=== PATIENT | female | born 1980 | race Two or more races ===

== ENCOUNTER 2016-11-04 09:51 | Emergency (ER) | payer OTHER ==
[2016-11-04 10:00] VITALS: BP 143/99; PULSE 79; TEMP 97; BMI 18.3
--- NOTE | 2016-11-04 10:47 | PDOC ---
History of Present Illness - General History Source: Patient Exam Limitations: No Limitations <Prashant Carvajal - Last Filed: 11/04/16 11:16> - History of Present Illness Initial Comments: 11/04/16 12:19 The patient is a 36 year old female with no past medical hx who presents to the ED complaining of dizziness and nausea since this morning. The patient states she had three wisdom teeth removed on Tuesday (3 days ago). She was given Amoxicillin, Acetaminophen with Codeine, and Ibuprofen. The patient reports she has been taking her Amoxicillin and Ibuprofen every day as prescribed. Today she notes her pain increased so she took two of the Acetaminophen with Codeine and shortly after started to feel nauseous and dizzy. She denies ever taking this medication in the past. She notes she did not eat anything today and only had milk to drink. Last night she had plantains for dinner. The patient denies vomiting, abdominal pain. The patient denies headaches, chest pain, SOB, fever, chills. <Audrey Bird - Last Filed: 11/04/16 12:20> - General Chief Complaint: Lightheaded Stated Complaint: DIZZINES Time Seen by Provider: 11/04/16 10:11 Past History - Psycho/Social/Smoking Cessation Hx Anxiety: No Suicidal Ideation: No Smoking History: Never smoked Have you smoked in the past 12 months: No Information on smoking cessation initiated: No Hx Alcohol Use: No Drug/Substance Use Hx: No Substance Use Type: None <Prashant Carvajal - Last Filed: 11/04/16 11:16> <Audrey Bird - Last Filed: 11/04/16 12:20> - Past Medical History Allergies/Adverse Reactions: Allergies Allergy/AdvReac Type Severity Reaction Status Date / Time No Known Allergies Allergy Verified 11/04/16 09:57 Home Medications: Ambulatory Orders NK [No Known Home Medication] 11/04/16 Review of Systems - Review of Systems Able to Perform ROS?: Yes Comments:: 11/04/16 12:20 CONSTITUTIONAL: No reported: Fever, Chills, Diaphoresis, Generalized Weakness, Malaise, Loss of Appetite HEENT: No reported: Rhinorrhea, Nasal Congestion, Throat Pain, Throat Swelling, Difficulty Swallowing, Mouth Swelling, Ear Pain, Eye Pain, Visual Changes CARDIOVASCULAR: No reported: Chest Pain, Syncope, Palpitations, Irregular Heart Rate, Lightheadedness, Peripheral Edema RESPIRATORY: No reported: Cough, Shortness of Breath, SOB with Exertion, Orthopnea, Wheezing , Stridor, Hemoptysis GASTROINTESTINAL: +Nausea. No reported: Abdominal pain, Abdominal Distension, Vomiting, Diarrhea, Constipation, Melena, Hematochezia GENITOURINARY: No reported: Dysuria, Frequency, Urgency, Hesitancy, Flank Pain, Genital Pain MUSCULOSKELETAL: No reported: Myalgia, Arthralgia, Joint Swelling, Back pain, Neck Pain SKIN: No reported: Rash, Itching, Pallor HEMEATOLOGIC/IMMUNOLOGIC: No reported: Easy Bleeding, Easy Bruising, Lymphadenopathy, Frequent infections ENDOCRINE: No reported: Unexplained Weight Gain, Unexplained Weight Loss, Heat Intolerance , Cold Intolerance NEUROLOGIC: +Dizziness. No reported: Headache, Focal Weakness, Paresthesias, Lightheadedness , Unsteady Gait, Seizure, Mental Status Changes, Incontinence PSYCHIATRIC: No reported: Anxiety, Depression <Audrey Bird - Last Filed: 11/04/16 12:20> *Physical Exam - Vital Signs Last Vital Signs Temp Pulse Resp BP Pulse Ox 97 F L 79 18 143/99 98 11/04/16 09:57 11/04/16 09:57 11/04/16 09:57 11/04/16 09:57 11/04/16 09:57 <Prashant Carvajal - Last Filed: 11/04/16 11:16> - Vital Signs Last Vital Signs Temp Pulse Resp BP Pulse Ox 97 F L 79 18 143/99 98 11/04/16 09:57 11/04/16 09:57 11/04/16 09:57 11/04/16 09:57 11/04/16 09:57 - Physical Exam Comments: 11/04/16 12:20 GENERAL: The patient is awake, alert, and fully oriented, Nontoxic - in no acute distress. HEAD: Normocephalic, atraumatic. EYES: extraocular movements intact, sclera anicteric, conjunctiva clear. ENT: Normal voice, Moist mucous membranes, no focal swelling/edema masses noted in phayrynx/mandible NECK: Normal range of motion, supple LUNGS: Breath sounds equal, clear to auscultation bilaterally. No wheezes, no rhonchi, no rales. HEART: Regular rate and rhythm, normal S1 and S2 without murmur, rub or gallop. ABDOMEN: Soft, nontender, normoactive bowel sounds. No guarding, no rebound. . No CVA tenderness EXTREMITIES: Normal range of motion, no edema. No clubbing or cyanosis. No cords, erythema, or tenderness. NEUROLOGICAL: No facial assymetry, Normal speech, moving all 4 extermities spontaneously and symemtrically PSYCH: Normal mood, normal affect. SKIN: Warm, Dry, normal turgor, <Audrey Bird - Last Filed: 11/04/16 12:20> Medical Decision Making - Medical Decision Making 11/04/16 10:58 36y F no pmhx presents with feeling lightheaded/dizzy, alittle nauseus, and itchy since around 7:30 this AM - the pt states she had recent wisdom tooth extraction. She has been taking amoxicillin TID since tuesday, this morning, she took 2 vicodin and 1 amoxicillin, then started to feel dizziy.nauseus/itchy. there was no associated cp, sob, vomiting, abd pain, back pain, fever/chills, increased swelling, rashes. doubt allergic reaction likely due to opiate effect, especially as she took 2 on a basically empty stomach (only been drinking juice and soup) will dc the pt with pmd fu return precautions were discussed A portion of this note was documented by scribe services under my direction. I have reviewed the details of the note, within reason, and agree with the documentation with the following case summary and management plan written by me I discussed the physical exam findings, ancillary test results and final diagnoses with the patient. I answered all of the patient's questions. The patient was satisfied with the care received and felt comfortable with the discharge plan and treatment plan. The patient will call their primary care physician within 24 hours to arrange follow-up and will return to the Emergency Department with any new, persistent or worsening symptoms. <Prashant Carvajal - Last Filed: 11/04/16 11:16> *DC/Admit/Observation/Transfer - Discharge Dispostion Admit: No <Prashant Carvajal - Last Filed: 11/04/16 11:16> - Attestations Scribe Attestion: 11/04/16 12:19 Documentation prepared by Audrey Neroda, acting as medical office secretary for Prashant Carvajal MD, /DO. <Audrey iBrd - Last Filed: 11/04/16 12:20> Diagnosis at time of Disposition: Adverse drug effect - Discharge Dispostion Disposition: HOME Condition at time of disposition: Improved - Referrals Referrals: [facility] [Provider Group] - Patient Instructions Printed Discharge Instructions: DI for Adverse Drug Reaction -- Other Additional Instructions: Return to the emergency department immediately with ANY new, persistent or worsening symptoms. Only take 1 of your pain medication as some patients can be sensitive to this class of medications. You MUST call and follow up with your doctor tomorrow for further evaluation of your symptoms. Results were discussed with you. Please make sure your doctor reviews the results of your emergency evaluation. Print Language: ICELANDIC
== END 2016-11-04 11:20 | disposition home or self-care (01) ==
LOC: JER 09:51
DX: R42 Dizziness and giddiness (principal); T40.2X5A Adverse effect of other opioids, initial encounter; Y92.038 Other place in apartment as the place of occurrence of the external cause; K08.199 Complete loss of teeth due to other specified cause, unspecified class
CPT/HCPCS: 99281-25

== ENCOUNTER 2018-12-22 15:37 | Emergency (ER) | payer OTHER | END 2018-12-22 18:17 | disposition home or self-care (01) | LOC: JER 15:37 ==

== ENCOUNTER 2019-02-19 09:55 | Emergency (ER) | payer OTHER ==
[2019-02-19 10:08] VITALS: BP 116/73; PULSE 109; TEMP 99.3; BMI 20.2
[2019-02-19 11:30] LABS: EPI CELLS 19.5 /HPF (0-5/HPF); HYALINE CASTS 13 /lpf (0-8); PH,URINE 6.5 (5.0-8.0); URINE APPEARANCE CLOUDY; URINE BACTERIA 319.4 /hpf (NEGATIVE); URINE BILIRUBIN NEGATIVE (NEGATIVE); URINE COLOR DK YELLOW; URINE GLUCOSE (UA) NEGATIVE (NEGATIVE); URINE KETONE 1+ (NEGATIVE); URINE LEUK ESTERASE 2+ (NEGATIVE); URINE NITRITE NEGATIVE (NEGATIVE); URINE PROTEIN NEGATIVE (NEGATIVE); URINE RBC 2 /hpf (0-4); URINE WBC 5 /hpf (0-5)
[2019-02-19 11:35] LABS: BASO % 0.2 % (0-2.0); EOS % 0.6 % (0-4.5); HEMATOCRIT 30.8 % (32.4-45.2); HEMOGLOBIN 10.5 GM/dL (10.7-15.3); LYMPH % 17.4 % (8-40); MCH 28.6 pg (25.7-33.7); MCHC 34.2 g/dl (32.0-36.0); MEAN CELL VOLUME 83.6 fl (80-96); MEAN PLT VOLUME 7.4 fl (7.5-11.1); NEUT % 76.8 % (42.8-82.8); PLATELET COUNT 296 K/MM3 (134-434); RBC 3.68 M/mm3 (3.60-5.2); RDW 14.8 % (11.6-15.6); WHITE BLOOD COUNT 10.2 K/mm3 (4.0-10.0)
--- NOTE | 2019-02-19 11:45 | PDOC ---
History of Present Illness - General Chief Complaint: Pain Stated Complaint: 17 WKS/ ABD. PAIN Time Seen by Provider: 02/19/19 10:19 History Source: Patient Exam Limitations: No Limitations - History of Present Illness Travel History: No Initial Comments: 02/19/19 11:41 38-year-old female currently 17 weeks presents to ED with complaints of lower abdominal cramping, chills, and mild fatigue. Patient states has had an ultrasound this which showed a normal IUP. Patient has no other complaints at this time including urinary complaints, nausea, vomiting, diarrhea recent travel recent illness. Timing/Duration: reports: constant Quality: reports: moderate, cramping Abdominal Pain Onset Location: reports: suprapubic Pain Radiation: reports: no radiation Activities at Onset: reports: none Aggravating Factors: improves with: None Alleviating Factors: improves with: None Past History - Travel Traveled outside of the country in the last 30 days: No Close contact w/someone who was outside of country & ill: No - Past Medical History Allergies/Adverse Reactions: Allergies Allergy/AdvReac Type Severity Reaction Status Date / Time No Known Allergies Allergy Verified 02/19/19 10:06 Home Medications: Ambulatory Orders Cephalexin [Keflex] 500 mg PO BID #14 capsule 02/19/19 Pnv No.95/Ferrous Fum/Folic AC [ Caplet] 1 each PO DAILY 02/19/19 COPD: No - Reproductive History (#): 3 Para: 1 Cervical CA: No Dysfunctional Uterine Bleeding: No Ectopic : No Endometrial CA: No Polycystic Ovaries: No Therapeutic (s) & number: Yes Tubal Ligation: No - Suicide/Smoking/Psychosocial Hx Smoking History: Never smoked Have you smoked in the past 12 months: No Hx Alcohol Use: No Drug/Substance Use Hx: No Substance Use Type: None Patient Lives Alone: No Lives with/in: spouse/SO Review of Systems - Review of Systems Able to Perform ROS?: Yes Constitutional: Yes: Chills HEENTM: No: Symptoms Reported Respiratory: No: Symptoms reported Cardiac (ROS): No: Symptoms Reported ABD/GI: Yes: Abdominal cramping : No: Symptoms Reported Musculoskeletal: No: Symptoms Reported Integumentary: No: Symptoms Reported Neurological: No: Symptoms reported Hematologic/Lymphatic: No: Symptoms Reported *Physical Exam - Vital Signs Last Vital Signs Temp Pulse Resp BP Pulse Ox 99.3 F 109 H 18 116/73 98 02/19/19 10:06 02/19/19 10:06 02/19/19 10:06 02/19/19 10:06 02/19/19 10:06 - Physical Exam General Appearance: Yes: Nourished, Appropriately Dressed. No: Apparent Distress HEENT: negative: Pale Conjunctivae Neck: positive: Normal Thyroid Respiratory/Chest: positive: Lungs Clear, Normal Breath Sounds. negative: Respiratory Distress, Accessory Muscle Use Cardiovascular: positive: Regular Rhythm, Tachycardia. negative: Murmur Gastrointestinal/Abdominal: positive: Soft, Tenderness (right suprapubic right lower quadrant) Musculoskeletal: negative: CVA Tenderness Extremity: positive: Normal Inspection Integumentary: positive: Normal Color, Warm, Moist Neurologic: positive: Motor Strength 5/5 ( ambulatory) ED Treatment Course - LABORATORY CBC & Chemistry Diagram: 02/19/19 11:00 02/19/19 11:00 - ADDITIONAL ORDERS Additional order review: Laboratory Results 02/19/19 10:58 Urine Color Dk yellow Urine Appearance Cloudy Urine pH 6.5 D Ur Specific [place] 1.024 Urine Protein Negative Urine Glucose (UA) Negative Urine Ketones 1+ H Urine Blood Negative Urine Nitrite Negative Urine Bilirubin Negative Urine Urobilinogen 1.0 Ur Leukocyte Esterase 2+ H Urine WBC (Auto) 5 Urine RBC (Auto) 2 Urine Casts (Auto) 13 U Epithel Cells (Auto) 19.5 Urine Bacteria (Auto) 319.4 02/19/19 11:00 RBC 3.68 MCV 83.6 MCHC 34.2 RDW 14.8 MPV 7.4 L Neutrophils % 76.8 Lymphocytes % 17.4 D Monocytes % 5.0 Eosinophils % 0.6 Basophils % 0.2 - RADIOLOGY Radiology Studies Ordered: Category Date Time Status ABDOMEN US -LIMITED [US] Stat Ultrasound 02/19/19 10:20 Ordered FOLLOW-UP US [US] Stat Ultrasound 02/19/19 10:20 Ordered Medical Decision Making - Medical Decision Making 02/19/19 1107 CC: abd cramping for the past 2 days now associated with chills and mild fatigue. Patient has no other complaints and is currently 17 weeks Exam: Slightly tachycardic at 106 and low-grade temperature 99.3 along with right lower quadrant and right suprapubic tenderness Plan: Urine urine culture CBC, comp, lactic acid, lipase and ultrasound ordered 02/19/19 13:46 Laboratory Tests 02/19/19 02/19/19 02/19/19 10:58 11:00 11:00 WBC 10.2 H Hgb 10.5 L Hct 30.8 L Sodium 138 Potassium 3.7 Chloride 104 Carbon Dioxide 26 Anion Gap 8 BUN 6.0 L Creatinine 0.4 L Lactic Acid Total Bilirubin 0.2 AST 29 ALT 43 Albumin 2.9 L Lipase Urine Ketones 1+ H Ur Leukocyte Esterase 2+ H Urine WBC (Auto) 5 Urine RBC (Auto) 2 02/19/19 02/19/19 11:00 11:00 WBC Hgb Hct Sodium Potassium Chloride Carbon Dioxide Anion Gap BUN Creatinine Lactic Acid 1.2 Total Bilirubin AST ALT Albumin Lipase 115 Urine Ketones Ur Leukocyte Esterase Urine WBC (Auto) Urine RBC (Auto) Ultrasound shows single live gestation 17 weeks 6 days with a heart rate of 140 beats intermittent. The fetus is in a vertex position at this time. Patient will be treated for urinary tract infection based on complaints of lower abdominal pain along with chills. Patient's UA suggestive of UTI. Urine culture sent. *DC/Admit/Observation/Transfer Diagnosis at time of Disposition: UTI (urinary tract infection), Abdominal pain during - Discharge Dispostion Disposition: HOME Condition at time of disposition: Improved - Prescriptions Prescriptions: Cephalexin [Keflex] 500 mg PO BID #14 capsule - Referrals Referrals: Carol Jack MD [Primary Care Provider] - - Patient Instructions Printed Discharge Instructions: DI for Urinary Tract Infection (UTI), DI for Abdominal Pain -- Early Additional Instructions: Tylenol for discomfort. Please take antibiotics until completed. Also drink plenty of fluids. - Post Discharge Activity
[2019-02-19 11:56] LABS: ALBUMIN 2.9 g/dl (3.4-5.0); BILIRUBIN,TOTAL 0.2 mg/dL (0.2-1); CALCIUM 8.6 mg/dL (8.5-10.1); CREATININE 0.4 mg/dL (0.55-1.3); POTASSIUM 3.7 mmol/L (3.5-5.1); TOT PROT 6.6 g/dl (6.4-8.2)
== END 2019-02-19 14:05 | disposition home or self-care (01) ==
LOC: JER 09:55
DX: O26.892 Other specified pregnancy related conditions, second trimester (principal); Z3A.17 17 weeks gestation of pregnancy; N39.0 Urinary tract infection, site not specified; R10.9 Unspecified abdominal pain
CPT/HCPCS: 36415; 76705-TC; 76816-TC; 80053; 81003; 83605; 83690; 85025; 87086; 99282-25

== ENCOUNTER 2019-07-23 09:25 | Inpatient (IN) | payer OTHER ==
[2019-07-23] MEDS ORDERED: ELECTROLYTE-148 SOLN 500 ML IV ONE (10:28)
[2019-07-23] MEDS ORDERED: ELECTROLYTE-148 SOLN 1,000 ML IV SCH (10:30)
[2019-07-23] MEDS ORDERED: CITRIC ACID/SODIUM CITRATE 30 ML UNIT-DOSE CUP PO ONE (10:30)
--- NOTE | 2019-07-23 10:33 | HP ---
Past Medical History - Admission Chief Complaint: Scheduled PTLCS History of Present Illness: 39yo @ 39wks by LMP/sono here for scheduled C/S secondary new onset HSV outbreak Pt noted several vesicular lesions on her buttocks, cultured and positive for HSV-2. Took only 2 days of her Valtrex and self discontinued secondary to GI upset. No VB/LOF. +ctx. +FM. 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's, CVA, Dementia, Migraine, Multiple Sclerosis, Peripheral Neuropathy, Parkinson's, Seizure, Syncope, TIA, Vertigo, Other ...: 2 ...Para: 1 ...Term: 1 ...: 0 ...EDC by Dates: 07/29/19 Infectious Disease: Yes: Other (HSV-2 confirmed on swab) Rheumatology: No: Fibromyalgia, Gout, Lupus, Rheumatoid Arthritis, Sarcoidosis, Vasculitis, Other ENT: No: Allergic Rhinitis, Sinusitis, Other Endocrine: No: Concordia's Disease, Teresa's Disease, Diabetes Insipidus, Diabetes Mellitus, Hyperparathyroidism, Hyperthyroidism, Hypothyroidism, Osteopenia, SIADH, Other Dermatology: No: Basal Cell, Cellulitis, Eczema, Melanoma, Psoriasis, Squamous Cell, Other - Past Surgical History Past Surgical History: Yes: None Hx Myomectomy: No Hx Transabdominal Cerclage: No - Smoking History Smoking history: Never smoked Have you smoked in the past 12 months: No - Alcohol/Substance Use Hx Alcohol Use: No - Social History Usual Living Arrangement: Yes: Alone Do you think of yourself as: Straight/Heterosexual ADL: Independent History of Recent Travel: No Home Medications - Allergies Allergies/Adverse Reactions: Allergies Allergy/AdvReac Type Severity Reaction Status Date / Time No Known Allergies Allergy Verified 07/23/19 10:26 - Home Medications Home Medications: Ambulatory Orders Pnv No.95/Ferrous Fum/Folic AC [ Caplet] 1 each PO DAILY 02/19/19 Review of Systems - Review of Systems Constitutional: denies: No Symptoms, Chills, Diaphoresis, Fever, Lethargy, Loss of Appetite, Malaise, Night Sweats, Unintentional Wgt. Loss, Weakness, Other Cardiovascular: denies: No Symptoms, Chest Pain, Edema, Palpitations, Shortness of Breath, Other Respiratory: denies: No Symptoms, Cough, Exercise Intolerance, Hemoptysis, Orthopnea, PND, Snoring, SOB, SOB on Exertion, Wheezing, Other Gastrointestinal: denies: No Symptoms, Abdominal Pain, Bloating, Constipation, Diarrhea, Dysphagia, Indigestion, Melena, Nausea, Rectal Bleeding, Vomiting, Vomiting Blood, Other Genitourinary: denies: No Symptoms, Burning, Discharge, Dysuria, Flank Pain, Frequency, Hematuria, Incontinence, Lesions, Menses, Pain, Testicular Mass, Testicular Pain, Testicular Swelling, Urgency, Vaginal Bleeding, Other Physical Exam - Maternity Constitutional: Yes: Well Nourished, No Distress, Calm - Abdominal Exam/OB Number of Fetuses: Single Presentation: Vertex Contractions: Yes Regularity: Regular Intensity: Mild Monitor Mode: External Category: I Accelerations: Non-Uniform Decelerations: None - Vaginal Exam/OB Vaginal Bleediing: No Speculum Exam: No Presentation: Vertex/Position - Physical Exam Edema: No Problem List - Problems (1) HSV (herpes simplex virus) infection Code(s): B00.9 - HERPESVIRAL INFECTION, UNSPECIFIED (2) 39 weeks gestation of Code(s): Z3A.39 - 39 WEEKS GESTATION OF Assessment/Plan 39yo @ 39+wks here for primary C/S given recent HSV outbreak Admit to L&D NPO, IVFs Ancef SCDs Mae TEDs Risk of procedure reviewed including bleeding, infection and injury to bladder/ bowel/adnexa/vessels/nerves reviewed. All questions answered. Consent signed. Zohreh Venegas MD
[2019-07-23] MEDS ORDERED: ONDANSETRON 4 MG/2 ML VIAL IVPUSH PRN (10:39)
[2019-07-23 10:45] VITALS: BMI 25.0
[2019-07-23] MEDS ORDERED: OXYTOCIN 20 UNITS in 0.9% NS 20 UNIT/1,000 ML INFUS.BAG IV ONE (11:00)
[2019-07-23] MEDS ORDERED: morphine SULFATE/PF 0.5 MG/ML (2cc Syringe - QUVA) ONE (11:03)
[2019-07-23] MEDS ORDERED: ceFAZolin SODIUM 1 GM VIAL ONE (11:15)
[2019-07-23] MEDS ORDERED: OXYTOCIN 10 UNITS/ML VIAL ONE ×2 (11:23→11:34)
[2019-07-23] MEDS ORDERED: METHYLERGONOVINE MALEATE 0.2 MG/1 ML AMP IM PRN (12:02)
[2019-07-23] MEDS ORDERED: IBUPROFEN 800 MG/8 ML IJ IVPB PRN (12:02)
[2019-07-23] MEDS ORDERED: oxyCODONE HCL 5 MG TABLET PO PRN (12:02)
--- NOTE | 2019-07-23 12:02 | OP ---
Operative Note - Note: Operative Date: 07/23/19 Operation: Primary Low Transverse Findings: VFI, REBECCA position, no nuchal, light meconium. Weight 7lbs 14oz. Apgars 9/9. Normal tubes and ovaries. Post-Operative Diagnosis: Same as Pre-op Surgeon: Fela Venegas Brokerage Branch Manager: Duong Osorio Anesthesia: Spinal Estimated Blood Loss (mls): 600 Drains, Volume Out (mls): 400 (clear urine) Operative Report Dictated: Yes
[2019-07-23] MEDS ORDERED: OXYTOCIN 20 UNITS in 0.9% NS 20 UNIT/1,000 ML INFUS.BAG IV SCH (12:15)
--- NOTE | 2019-07-23 13:26 | HP ---
DATE OF ADMISSION: 07/23/2019 PREOPERATIVE DIAGNOSIS: A 39-week , primary herpes simplex virus II outbreak. POSTOPERATIVE DIAGNOSIS: A 39-week , primary herpes simplex virus II outbreak. PROCEDURE: Primary low transverse section. ANESTHESIA: Spinal. SURGEON: Fela Venegas MD CRATE ICER: PETR Jiménez INTRAVENOUS FLUIDS: Per anesthesia record. ESTIMATED BLOOD LOSS: 600. URINE OUTPUT: 400 mL of clear urine at the end of the procedure. FINDINGS: Viable female , REBECCA position. One nuchal delivered through. Late meconium. Weight 7 pounds 14 ounces. Apgars 9, 9. Normal tubes and ovaries bilaterally. COMPLICATIONS: None. CONDITION: Stable to recovery room. NATURE OF THE PROCEDURE: After the appropriate consents were signed, patient was taken to the operating room. Spinal anesthesia was administered. Sterile Mae catheter had been inserted prior to entry into the operating room. The abdomen was prepped and draped in a normal sterile fashion. Time-out was performed confirming correct patient and procedure. Anesthesia was confirmed prior to incision. A Pfannenstiel incision was made through the skin, carried through to the underlying layers until the fascia was nicked in the midline. The fascia was then extended laterally with the Syed scissors. The inferior aspect of the fascia was grasped with a Eliseo clamp, tented upwards, and the rectus muscle was dissected off bluntly and with the Syed scissors. Attention was then paid to the superior aspect, which was taken down in a similar fashion. The rectus muscles were bluntly in the midline. The peritoneum was entered bluntly. Bladder blade was inserted. Bladder reflection was made after the serosa was nicked in the midline with the Metzenbaums and extended laterally with the Metzenbaum scissors. Bladder flap was created digitally. The uterus was incised in a low transverse fashion. Meconium-stained amniotic fluid was noted. The 's head was delivered without difficulty after the remaining shoulders and body. There was 1 body nuchal that was delivered through. The cord was clamped and cut. The was handed off to the awaiting pediatric staff. The placenta was then removed manually. The uterus was cleared of all clot and debris. The uterus was exteriorized. The hysterotomy was closed in a single, vertical, imbricating layer with a 1-0 Vicryl with a midline area that had to be reinforced for hemostasis with a 1-0 Vicryl, and hemostasis was achieved. The adnexa were inspected and noted to be normal. The uterus was then returned to the abdominal cavity. The hysterotomy was noted to be normal. Gutter was cleared of all clot and debris. Muscle reapproximated with a 2-0 chromic. Fascia was closed with a 0 Vicryl. Subcutaneous tissue was closed with a 2-0 chromic. The skin was closed with a 3-0 Biosyn. All sponge, lap, needle counts were correct x3. The patient did receive Ancef at the start of the procedure. She was taken from the operating room to recovery area in stable condition. MD KEVIN ROY/[id number]
[2019-07-23] MEDS: ACETAMINOPHEN 325 MG TABLET (FP) PO PRN (21:24)
[2019-07-24] MEDS: FERROUS SO4 325 MG TABLET (FP) PO SCH ×3 (00:37→22:20)
--- NOTE | 2019-07-24 07:59 | PN ---
Post Progress Note - Subjective Subjective: Patient is out of bed, Mae just removed, desiring to see Post Day: 1 Type of Delivery: Primary C/S Vital Signs: Vital Signs Temperature 98.1 F 07/24/19 06:00 Pulse Rate 87 07/24/19 06:00 Respiratory Rate 20 07/24/19 07:00 Blood Pressure 99/50 L 07/24/19 06:00 O2 Sat by Pulse Oximetry (%) 100 07/23/19 13:05 Breast Exam: Yes: Other Uterus: Yes: Fundus Firm Incision: Yes: Dressing dry and intact, Sutures intact Abdomen/GI: Yes: Abdomen soft Lochia, amount: Moderate Extremities: Yes: Calves non-tender Perineum: Yes: Intact Activity: Ambulating Assessment/Plan POD # 1 in stable condition S/P PLTC due to suspected HSV outbreak -Continue PP/post-op care -Encourage ambulation -NICU to speak to mother
[2019-07-24] MEDS: ACETAMINOPHEN 325 MG TABLET (FP) PO PRN ×3 (08:07→22:24)
[2019-07-24] MEDS: IBUPROFEN 600 MG TABLET (FP) PO PRN ×3 (08:08→22:23)
[2019-07-24] MEDS: SIMETHICONE 80 MG TAB.CHEW (FP) PO PRN ×3 (08:10→22:23)
[2019-07-24 09:20] LABS: BASO % 0.3 % (0-2.0); EOS % 0.1 % (0-4.5); HEMOGLOBIN 12.4 GM/dL (10.7-15.3); LYMPH % 8.4 % (8-40); MCH 28.5 pg (25.7-33.7); MCHC 33.6 g/dl (32.0-36.0); MEAN CELL VOLUME 84.8 fl (80-96); MEAN PLT VOLUME 7.7 fl (7.5-11.1); MONO % 4.2 % (3.8-10.2); PLATELET COUNT 221 K/MM3 (134-434); RBC 4.36 M/mm3 (3.60-5.2)
[2019-07-24] MEDS: PRENATAL VITAMINS W/ FOLIC ACID TABLET (FP) PO SCH (09:47)
[2019-07-24] MEDS ORDERED: BISACODYL 10 MG SUPP.RECT RC PRN (12:02)
[2019-07-25] MEDS: SIMETHICONE 80 MG TAB.CHEW (FP) PO PRN ×3 (08:07→20:52)
[2019-07-25] MEDS: IBUPROFEN 600 MG TABLET (FP) PO PRN ×2 (08:07→15:28)
[2019-07-25] MEDS: ACETAMINOPHEN 325 MG TABLET (FP) PO PRN ×2 (08:08→15:28)
--- NOTE | 2019-07-25 08:11 | PN ---
Post Progress Note - Subjective Subjective: c/o pain scale varrying 5-7 voiding urine BM done c/o rash on her back & itching Post Day: 2 Type of Delivery: Primary C/S Vital Signs: Vital Signs Temperature 98.2 F 07/24/19 22:00 Pulse Rate 85 07/24/19 22:00 Respiratory Rate 18 07/24/19 22:00 Blood Pressure 119/72 07/24/19 22:00 O2 Sat by Pulse Oximetry (%) 100 07/23/19 13:05 Breast Exam: Yes: Soft, Other (pumping breast milk ). No: Engorged Uterus: Yes: Fundus Firm, Fundus below umbilicus Incision: Yes: Sutures intact. No: Redness, Oozing Abdomen/GI: Yes: Abdomen soft (bs active ), Tender, Passing flatus, Tolerating PO (diet). No: Abdominal Distention Lochia: Yes: Rubra Lochia, amount: Moderate Extremities: Yes: Calves non-tender Perineum: Yes: Intact Activity: Ambulating - Labs Labs: CBC WBC 17.0 K/mm3 (4.0-10.0) H 07/24/19 08:50 RBC 4.36 M/mm3 (3.60-5.2) 07/24/19 08:50 Hgb 12.4 GM/dL (10.7-15.3) 07/24/19 08:50 Hct 37.0 % (32.4-45.2) 07/24/19 08:50 MCV 84.8 fl (80-96) 07/24/19 08:50 MCH 28.5 pg (25.7-33.7) 07/24/19 08:50 MCHC 33.6 g/dl (32.0-36.0) 07/24/19 08:50 RDW 16.0 % (11.6-15.6) H 07/24/19 08:50 Plt Count 221 K/MM3 (134-434) 07/24/19 08:50 MPV 7.7 fl (7.5-11.1) 07/24/19 08:50 Absolute Neuts (auto) 14.8 K/mm3 (1.5-8.0) H 07/24/19 08:50 Neutrophils % 87.0 % (42.8-82.8) H 07/24/19 08:50 Lymphocytes % 8.4 % (8-40) D 07/24/19 08:50 Monocytes % 4.2 % (3.8-10.2) 07/24/19 08:50 Eosinophils % 0.1 % (0-4.5) 07/24/19 08:50 Basophils % 0.3 % (0-2.0) 07/24/19 08:50 Nucleated RBC % 0 % (0-0) 07/24/19 08:50 Other Findings, Remarks: large patches of urticarial erythematous rash all over the back , unable to find cuse of allergy Problem List - Problems (1) Status post section routine follow-up Code(s): Z39.2 - ENCOUNTER FOR ROUTINE FOLLOW-UP; Z98.891 - HISTORY OF UTERINE SCAR FROM PREVIOUS SURGERY Assessment/Plan stable plan ct po care po benadryl
[2019-07-25] MEDS: diphenhydrAMINE HCL 25 MG CAPSULE (FP) PO PRN ×2 (08:56→20:52)
[2019-07-25] MEDS: FERROUS SO4 325 MG TABLET (FP) PO SCH ×2 (10:39→22:30)
[2019-07-25] MEDS: PRENATAL VITAMINS W/ FOLIC ACID TABLET (FP) PO SCH (10:39)
[2019-07-26] MEDS: diphenhydrAMINE HCL 25 MG CAPSULE (FP) PO PRN ×2 (02:14→21:31)
[2019-07-26] MEDS: ACETAMINOPHEN 325 MG TABLET (FP) PO PRN ×3 (02:15→21:23)
[2019-07-26] MEDS: SIMETHICONE 80 MG TAB.CHEW (FP) PO PRN ×2 (02:15→15:40)
[2019-07-26] MEDS: IBUPROFEN 600 MG TABLET (FP) PO PRN ×3 (02:15→21:24)
--- NOTE | 2019-07-26 06:29 | PN ---
Post Progress Note - Subjective Subjective: Pain controlled. Ambulating. No fevers/chills. Baby in NICU Post Day: 3 Type of Delivery: Primary C/S Vital Signs: Vital Signs Temperature 98.1 F 07/25/19 22:00 Pulse Rate 70 07/25/19 22:00 Respiratory Rate 20 07/25/19 22:00 Blood Pressure 117/64 07/25/19 22:00 O2 Sat by Pulse Oximetry (%) 100 07/23/19 13:05 Uterus: Yes: Fundus below umbilicus Incision: Yes: Dressing dry and intact, Sutures intact Abdomen/GI: Yes: Abdomen soft, Passing flatus, Tolerating PO Lochia: Yes: Rubra Lochia, amount: Small Extremities: Yes: Calves non-tender Perineum: Yes: Intact Activity: Ambulating - Labs Labs: CBC WBC 17.0 K/mm3 (4.0-10.0) H 07/24/19 08:50 RBC 4.36 M/mm3 (3.60-5.2) 07/24/19 08:50 Hgb 12.4 GM/dL (10.7-15.3) 07/24/19 08:50 Hct 37.0 % (32.4-45.2) 07/24/19 08:50 MCV 84.8 fl (80-96) 07/24/19 08:50 MCH 28.5 pg (25.7-33.7) 07/24/19 08:50 MCHC 33.6 g/dl (32.0-36.0) 07/24/19 08:50 RDW 16.0 % (11.6-15.6) H 07/24/19 08:50 Plt Count 221 K/MM3 (134-434) 07/24/19 08:50 MPV 7.7 fl (7.5-11.1) 07/24/19 08:50 Absolute Neuts (auto) 14.8 K/mm3 (1.5-8.0) H 07/24/19 08:50 Neutrophils % 87.0 % (42.8-82.8) H 07/24/19 08:50 Lymphocytes % 8.4 % (8-40) D 07/24/19 08:50 Monocytes % 4.2 % (3.8-10.2) 07/24/19 08:50 Eosinophils % 0.1 % (0-4.5) 07/24/19 08:50 Basophils % 0.3 % (0-2.0) 07/24/19 08:50 Nucleated RBC % 0 % (0-0) 07/24/19 08:50 Problem List - Problems (1) HSV (herpes simplex virus) infection Code(s): B00.9 - HERPESVIRAL INFECTION, UNSPECIFIED (2) 39 weeks gestation of Code(s): Z3A.39 - 39 WEEKS GESTATION OF Assessment/Plan 39yo s/p PLTCS, POD#3 Routine PP care OOB, ambulate Labs reviewed D/C to home POD#4 Zohreh Venegas MD
[2019-07-26 08:13] LABS: BASO % 0.8 % (0-2.0); EOS % 2.1 % (0-4.5); HEMATOCRIT 33.5 % (32.4-45.2); LYMPH % 17.6 % (8-40); MCH 28.3 pg (25.7-33.7); MCHC 32.9 g/dl (32.0-36.0); MEAN PLT VOLUME 7.5 fl (7.5-11.1); MONO % 5.2 % (3.8-10.2); NEUT % 74.3 % (42.8-82.8); PLATELET COUNT 250 K/MM3 (134-434); RDW 15.8 % (11.6-15.6); WHITE BLOOD COUNT 13.4 K/mm3 (4.0-10.0)
[2019-07-26] MEDS: PRENATAL VITAMINS W/ FOLIC ACID TABLET (FP) PO SCH (10:00)
[2019-07-26] MEDS: FERROUS SO4 325 MG TABLET (FP) PO SCH ×2 (10:00→21:23)
--- NOTE | 2019-07-26 15:52 | PATH ---
Surgical Pathology Report Patient Name: RYAN VIEIRA Med. Rec. 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 Electronically Signed Zeny Redding M.D. Gross Description The specimen is received fresh labeled placenta and is a 580 gram, 23.0 x 20.5 x 1.8 cm. placenta with attached membranes and umbilical cord. The attached membranes are rachel, translucent with focal opacities and insert marginally. The umbilical cord measures 38 cm. in length and averages 1 cm. in diameter. The cord inserts eccentrically, 6.5 cm. to the nearest margin. No true knots or strictures are identified. Cut surface of the umbilical cord reveals 3 vessels. The surface is roberts-blue with minimal fibrin deposition and appropriate caliber vessels. The maternal surface is red-brown with focal defects. Sectioning reveals red-brown, spongy parenchyma. No lesions are identified. Sql Server Developer sections are submitted in three cassettes as follows: 1- membrane rolls and umbilical cord; 2-3- full thickness sections of placenta. /07/25/2019 [facility]07/25/2019
[2019-07-27] MEDS: IBUPROFEN 600 MG TABLET (FP) PO PRN (08:40)
[2019-07-27] MEDS: ACETAMINOPHEN 325 MG TABLET (FP) PO PRN (08:41)
[2019-07-27] MEDS: SIMETHICONE 80 MG TAB.CHEW (FP) PO PRN (08:42)
[2019-07-27 09:29] VITALS: BP 123/68; PULSE 97; TEMP 98.6
[2019-07-27] MEDS: PRENATAL VITAMINS W/ FOLIC ACID TABLET (FP) PO SCH (10:00)
[2019-07-27] MEDS: FERROUS SO4 325 MG TABLET (FP) PO SCH (10:00)
--- NOTE | 2019-07-27 11:30 | DS ---
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 No: Distention Renal/: Yes: WNL. No: CVA Tenderness - Left, CVA Tenderness - Right ....Post : Yes: Uterus firm, Uterus non-tender, Moderate lochia rubra Breast(s): Yes: WNL (pumping breast milk BF) Musculoskeletal: Yes: WNL Extremities: Yes: WNL. No: Calf Tenderness Edema: LLE: Trace, RLE: Trace Integumentary: Yes: Erythema (skin rash on her back & sides), Other Wound/Incision: Yes: Clean/Dry, Well Approximated, Sutures Intact, Steri Strips. No: Reddened, Bleeding Neurological: Yes: WNL, Alert, Oriented ...Motor Strength: WNL Psychiatric: Yes: WNL, Alert, Oriented Labs: CBC, BMP 07/26/19 07:51 Delivery - Delivery Type of Anesthesia: Spinal Episiotomy/Laceration: None EBL (cc): 600 Delivery, Single - Stages of Labor Date of Delivery: 07/23/19 Time of Delivery: 11:26 Time Placenta Delivered: 11:27 - Condition of Infant Taxicab Dispatcher/Special Events Assistant Present: Yes Name: Yogi Soria Infant Gender: Female Weight: 7 lb 14 oz Total Hours ROM (Hrs/Mins): 0/01 - 1 Minute Total Score: 9 5 Minutes Total Score: 9 - Feeding Plan Initial Plan: Elected not to breastfeed exclusively throughout hospitalization Remarks - Remarks Remarks: [facility] patient Discharge Summary Problems reviewed: Yes Reason For Visit: Current Active Problems 39 weeks gestation of (Acute) HSV (herpes simplex virus) infection (Acute) Status post section routine follow-up (Acute) Condition: Stable - Instructions Diet, Activity, Other Instructions: Regular Diet Follow up in one week for an incision check with Dr. Venegas Follow with prop maker if norelief from skin rash po benadryl or po clartin otc for rash prn Referrals: Fela Venegas MD [Staff Physician] - Disposition: HOME - Home Medications Comprehensive Discharge Medication List: Ambulatory Orders Pnv No.95/Ferrous Fum/Folic AC [ Caplet] 1 each PO DAILY 02/19/19 Ibuprofen 600 mg PO Q6H PRN #30 tablet 07/25/19 Oxycodone HCl/Acetaminophen [Percocet 5-325 mg Tablet -] 1 - 2 tab PO Q6H PRN # 20 tab MDD 4 07/25/19 Prescription Drug Monitoring Program (I-STOP) results: I-STOP reviewed and no issues identified
== END 2019-07-27 11:25 | disposition home or self-care (01) | DRG 540 ==
LOC: JLDR 09:25 → J3W 13:45
PROVIDERS: ADMIT Obstetrics & Gynecology; ATTEND Obstetrics & Gynecology
PROC: 10D00Z1 Extraction of Products of Conception, Low, Open Approach (ICD-10-PCS; principal; 2019-07-23)
DX: O98.52 Other viral diseases complicating childbirth (principal); O77.0 Labor and delivery complicated by meconium in amniotic fluid; O90.89 Other complications of the puerperium, not elsewhere classified; R21 Rash and other nonspecific skin eruption; Z3A.39 39 weeks gestation of pregnancy; Z37.0 Single live birth
CPT/HCPCS: 36415; 85025; 86695; 86696

== ENCOUNTER 2023-10-23 11:04 | Emergency (ER) | payer OTHER ==
[2023-10-23 11:13] VITALS: RESP 18; BMI 19.6
[2023-10-23 13:00] LABS: BASO % 0.5 % (0-2.0); EOS % 0.9 % (0-4.5); HEMATOCRIT 32.2 % (32.4-45.2); HEMOGLOBIN 10.2 GM/dL (10.7-15.3); LYMPH % 18.2 % (8-40); MCH 24.7 pg (25.7-33.7); MCHC 31.6 g/dl (32.0-36.0); MEAN PLT VOLUME 7.1 fl (7.5-11.1); MONO % 4.8 % (3.8-10.2); NEUT % 75.6 % (42.8-82.8); PLATELET COUNT 391 10^3/uL (134-434); RBC 4.13 M/mm3 (3.60-5.2); RDW 14.6 % (11.6-15.6); WHITE BLOOD COUNT 11.7 K/mm3 (4.0-10.0)
[2023-10-23 13:05] VITALS: TEMP 98.6
[2023-10-23 13:09] LABS: EPI CELLS 4 /uL (0-25.1); HYALINE CASTS 0 /uL (0-3.1); PH,URINE 7.5 (5.0-8.0); URINE APPEARANCE CLEAR; URINE BACTERIA 2 /uL (0-1359); URINE BILIRUBIN NEGATIVE (NEGATIVE); URINE COLOR YELLOW; URINE GLUCOSE (UA) NEGATIVE (NEGATIVE); URINE KETONE NEGATIVE (NEGATIVE); URINE LEUK ESTERASE TRACE (NEGATIVE); URINE NITRITE NEGATIVE (NEGATIVE); URINE PROTEIN NEGATIVE (NEGATIVE); URINE RBC 22 /uL (0-23.9); URINE UROBILINOGEN 0.2 mg/dL (0.2-1.0); URINE WBC 6 /uL (0-25.8)
[2023-10-23 13:12] LABS: INR 1.1 (0.83-1.09); PROTHROMBIN TIME (PATIENT) 12.7 SEC (9.7-13.0)
[2023-10-23 13:15] LABS: ACTIVATED PTT 29.9 SECONDS (25.2-36.5)
[2023-10-23 13:27] LABS: POTASSIUM 3.9 mmol/L (3.5-5.1)
[2023-10-23 13:29] LABS: CALCIUM 8.8 mg/dL (8.5-10.1)
[2023-10-23 13:30] LABS: ALBUMIN 3.4 g/dl (3.4-5.0); BLOOD UREA NITROGEN 6.7 mg/dL (7-18)
[2023-10-23 13:33] LABS: CREATININE 0.5 mg/dL (0.55-1.3)
[2023-10-23 13:34] LABS: TOT PROT 7.2 g/dl (6.4-8.2)
[2023-10-23 13:35] LABS: BILIRUBIN,TOTAL 0.2 mg/dL (0.2-1)
[2023-10-23 13:38] LABS: N-TERMINAL BNP 86.9 pg/ml (5-125)
[2023-10-23] MEDS ORDERED: ACETAMINOPHEN INJECTION 100 ML IVPB ONE (15:56)
[2023-10-23] MEDS: ACETAMINOPHEN 1000 MG/100 ML BAG IVPB ONE (16:04)
[2023-10-23 16:20] VITALS: BP 131/82; PULSE 83
== END 2023-10-23 16:20 | disposition home or self-care (01) ==
LOC: JER 11:04
PROC: 3E030NZ Introduction of Analgesics, Hypnotics, Sedatives into Peripheral Vein, Open Approach (ICD-10-PCS; principal; 2023-10-23)
DX: R42 Dizziness and giddiness (principal); R06.02 Shortness of breath; N93.9 Abnormal uterine and vaginal bleeding, unspecified; Z20.822 Contact with and (suspected) exposure to COVID-19
CPT/HCPCS: 0241U-QW; 36415; 71275-TC; 80053; 81003; 83880; 84484; 84703; 85025; 85610; 85730; 86850; 86900; 86901; 93005; 93010; 93970-TC; 99285-25; J0131

== ENCOUNTER 2023-12-13 09:51 | Emergency (ER) | payer OTHER ==
[2023-12-13 09:58] VITALS: BP 155/83; PULSE 97; RESP 20; TEMP 98.2
[2023-12-13] MEDS: KETOROLAC TROMETHAMINE 15 MG/ML VIAL IVPUSH ONE (10:30)
[2023-12-13] MEDS ORDERED: KETOROLAC TROMETHAMINE 15 MG/ML VIAL ONE (11:04)
[2023-12-13 11:33] LABS: BASO % 0.5 % (0-2.0); EOS % 0.4 % (0-4.5); HEMATOCRIT 34.5 % (32.4-45.2); HEMOGLOBIN 11.4 GM/dL (10.7-15.3); LYMPH % 17.9 % (8-40); MCH 24.9 pg (25.7-33.7); MCHC 33.1 g/dl (32.0-36.0); MEAN CELL VOLUME 75.4 fl (80-96); MEAN PLT VOLUME 7.5 fl (7.5-11.1); NEUT % 77.2 % (42.8-82.8); PLATELET COUNT 407 10^3/uL (134-434); RBC 4.58 M/mm3 (3.60-5.2); RDW 16.1 % (11.6-15.6); WHITE BLOOD COUNT 10.3 K/mm3 (4.0-10.0)
[2023-12-13 11:42] LABS: INR 0.95 (0.83-1.09); PROTHROMBIN TIME (PATIENT) 10.9 SEC (9.7-13.0)
[2023-12-13 11:45] LABS: ACTIVATED PTT 28.4 SECONDS (25.2-36.5)
[2023-12-13 11:46] LABS: CALCIUM 9.2 mg/dL (8.5-10.1)
[2023-12-13 11:47] LABS: BLOOD UREA NITROGEN 9.7 mg/dL (7-18); MAGNESIUM 2.2 mg/dL (1.8-2.4)
[2023-12-13 11:50] LABS: CREATININE 0.6 mg/dL (0.55-1.3)
[2023-12-13 11:51] LABS: BILIRUBIN,TOTAL 0.4 mg/dL (0.2-1); TOT PROT 8.6 g/dl (6.4-8.2)
== END 2023-12-13 14:11 | disposition home or self-care (01) ==
LOC: JERFT 09:51
PROC: 3E0333Z Introduction of Anti-inflammatory into Peripheral Vein, Percutaneous Approach (ICD-10-PCS; principal; 2023-12-13)
DX: R07.89 Other chest pain (principal)
CPT/HCPCS: 36415; 71046-TC-FY; 71275-TC; 80053; 83735; 84484; 84703; 85025; 85379; 85610; 85730; 93005; 93010; 99285-25; Q9967

== ENCOUNTER 2024-02-13 11:02 | Emergency (ER) | payer OTHER ==
[2024-02-13 11:18] VITALS: RESP 18; BMI 20.2
[2024-02-13 14:30] LABS: BASO % 0.7 % (0-2.0); EOS % 0.5 % (0-4.5); HEMATOCRIT 34.7 % (32.4-45.2); HEMOGLOBIN 11.2 GM/dL (10.7-15.3); LYMPH % 28.1 % (8-40); MCH 23.9 pg (25.7-33.7); MCHC 32.4 g/dl (32.0-36.0); MEAN CELL VOLUME 73.9 fl (80-96); MEAN PLT VOLUME 7.3 fl (7.5-11.1); MONO % 4.7 % (3.8-10.2); PLATELET COUNT 363 10^3/uL (134-434); RBC 4.69 M/mm3 (3.60-5.2); RDW 16.3 % (11.6-15.6); WHITE BLOOD COUNT 8.3 K/mm3 (4.0-10.0)
[2024-02-13] MEDS ORDERED: MECLIZINE HCL 25 MG TABLET (FP) ONE (14:35)
[2024-02-13] MEDS ORDERED: ACETAMINOPHEN INJECTION 100 ML IVPB ONE (14:35)
[2024-02-13] MEDS: MECLIZINE HCL 25 MG TABLET (FP) PO ONE (14:44)
[2024-02-13] MEDS: ACETAMINOPHEN 1000 MG/100 ML BAG IVPB ONE (14:44)
[2024-02-13] MEDS: SODIUM CHLORIDE 0.9% 500 ML INFUS.BAG IV ONE (14:44)
[2024-02-13 14:56] LABS: CALCIUM 9.1 mg/dL (8.5-10.1)
[2024-02-13 14:57] LABS: BLOOD UREA NITROGEN 7.7 mg/dL (7-18)
[2024-02-13 15:00] LABS: CREATININE 0.5 mg/dL (0.55-1.3)
[2024-02-13 15:01] LABS: BILIRUBIN,TOTAL 0.5 mg/dL (0.2-1); TOT PROT 8.4 g/dl (6.4-8.2)
[2024-02-13 15:43] VITALS: BP 138/82; PULSE 71; TEMP 98.1
[2024-02-13 15:46] LABS: HIV INTERPRETATION NEGATIVE (NEGATIVE)
== END 2024-02-13 16:05 | disposition home or self-care (01) ==
LOC: JER 11:02
PROC: 3E033NZ Introduction of Analgesics, Hypnotics, Sedatives into Peripheral Vein, Percutaneous Approach (ICD-10-PCS; principal; 2024-02-13)
DX: R42 Dizziness and giddiness (principal); S00.83XA Contusion of other part of head, initial encounter; W22.8XXA Striking against or struck by other objects, initial encounter
CPT/HCPCS: 36415; 70450-TC; 80053; 84484; 84703; 85025; 86803; 87389; 93005; 93010; 99285-25; J0131

== ENCOUNTER 2024-09-26 10:40 | Emergency (ER) | payer OTHER ==
[2024-09-26 11:09] VITALS: BP 141/93; PULSE 83; RESP 16; TEMP 98.6; BMI 20.5
[2024-09-26 11:41] LABS: EPI CELLS 36 /uL (0-25.1); HCG,QUALITATIVE URINE Negative; HYALINE CASTS 1 /uL (0-3.1); URINE APPEARANCE CLEAR; URINE BACTERIA 3060 /uL (0-1359); URINE BILIRUBIN NEGATIVE (NEGATIVE); URINE COLOR YELLOW; URINE GLUCOSE (UA) NEGATIVE (NEGATIVE); URINE KETONE NEGATIVE (NEGATIVE); URINE LEUK ESTERASE NEGATIVE (NEGATIVE); URINE NITRITE NEGATIVE (NEGATIVE); URINE PROTEIN NEGATIVE (NEGATIVE); URINE UROBILINOGEN 0.2 mg/dL (0.2-1.0); URINE WBC 18 /uL (0-25.8)
[2024-09-26] MEDS ORDERED: ACETAMINOPHEN INJECTION 100 ML ONE (12:03)
[2024-09-26] MEDS ORDERED: ONDANSETRON 4 MG/2 ML VIAL ONE (12:03)
[2024-09-26] MEDS: ACETAMINOPHEN 1000 MG/100 ML BAG IVPB ONE (12:12)
[2024-09-26] MEDS: SODIUM CHLORIDE 1,000 ML IV STA (12:12)
[2024-09-26] MEDS: ONDANSETRON 4 MG/2 ML VIAL IVPUSH ONE (12:12)
[2024-09-26 12:14] LABS: ABSOLUTE IMMATURE GRANULOCYTES 0.03 x10^3/uL (0.0-0.031); BASOPHILS # 0.04 x10^3/uL (0.01-0.08); EOSINOPHIL % 1.3 % (0.7-5.8); EOSINOPHILS # 0.16 x10^3/uL (0.04-0.36); HEMOGLOBIN 12.6 g/dL (11.2-15.7); MCHC 30.7 g/dl (32.2-35.5); MEAN CELL VOLUME 84.4 fl (79.4-94.8); MEAN PLT VOLUME 9.8 fl (9.4-12.3); MONOCYTE # 0.55 x10^3/uL (0.24-0.86); MONOCYTE % 4.3 % (4.7-12.5); PLATELET COUNT # 320 x10^3/uL (182-369); RDW 14.5 % (12.2-17.1)
[2024-09-26 12:45] LABS: POTASSIUM 4.3 mmol/L (3.5-5.1)
[2024-09-26 12:47] LABS: ALBUMIN 4.2 g/dl (3.4-5.0); BLOOD UREA NITROGEN 15.7 mg/dL (7-18); CALCIUM 8.9 mg/dL (8.5-10.1)
[2024-09-26 12:51] LABS: CREATININE 0.6 mg/dL (0.55-1.3)
[2024-09-26 12:53] LABS: BILIRUBIN,TOTAL 0.4 mg/dL (0.2-1); TOT PROT 8.3 g/dl (6.4-8.2)
[2024-09-26 13:07] LABS: URINE RBC 18 /uL (0-23.9)
[2024-09-26 13:36] LABS: HCV DIAGNOSTIC IN-HOUSE W/RFLX NON-REACTIVE (NONREACTIVE); HIV INTERPRETATION NEGATIVE (NEGATIVE)
== END 2024-09-26 15:51 | disposition home or self-care (01) ==
LOC: JER 10:40
PROC: 3E033NZ Introduction of Analgesics, Hypnotics, Sedatives into Peripheral Vein, Percutaneous Approach (ICD-10-PCS; principal; 2024-09-26)
PROC: 3E033GC Introduction of Other Therapeutic Substance into Peripheral Vein, Percutaneous Approach (ICD-10-PCS; 2024-09-26)
PROC: 3E0337Z Introduction of Electrolytic and Water Balance Substance into Peripheral Vein, Percutaneous Approach (ICD-10-PCS; 2024-09-26)
DX: K52.9 Noninfective gastroenteritis and colitis, unspecified (principal); R11.0 Nausea; R10.32 Left lower quadrant pain
CPT/HCPCS: 36415; 74177-TC; 80053; 81003; 83690; 84703; 85025; 86803; 87086; 87389; 99285-25; J0131; Q9967

== ENCOUNTER 2024-11-02 05:26 | Day surgery (SDC) | payer OTHER ==
[2024-10-25 16:29] VITALS: BMI 20.7
[2024-11-02 08:56] VITALS: TEMP 98.2
[2024-11-02 09:31] VITALS: RESP 18
[2024-11-02 09:33] VITALS: BP 118/71; PULSE 63
== END 2024-11-02 10:30 | disposition home or self-care (01) ==
LOC: JASU-ENDO 05:26
PROVIDERS: ATTEND Internal Medicine Gastroenterology
PROC: 0DB98ZX Excision of Duodenum, Via Natural or Artificial Opening Endoscopic, Diagnostic (ICD-10-PCS; 2024-11-02)
PROC: 0DB78ZX Excision of Stomach, Pylorus, Via Natural or Artificial Opening Endoscopic, Diagnostic (ICD-10-PCS; 2024-11-02)
PROC: 0DB68ZX Excision of Stomach, Via Natural or Artificial Opening Endoscopic, Diagnostic (ICD-10-PCS; 2024-11-02)
PROC: 0DJD8ZZ Inspection of Lower Intestinal Tract, Via Natural or Artificial Opening Endoscopic (ICD-10-PCS; principal; 2024-11-02 08:30)
DX: K29.50 Unspecified chronic gastritis without bleeding (principal); B96.81 Helicobacter pylori [H. pylori] as the cause of diseases classified elsewhere; D64.9 Anemia, unspecified
CPT/HCPCS: 81025; 88305-TC; 88342-TC